=== PATIENT | female | born 1975 | race Caucasian/White ===

== ENCOUNTER → 2021-07-22 | Outpatient (CLI) | payer BC ==
[2021-07-22 11:29] LABS: HEMOGLOBIN 12.5 gm/dl (12.3-15.3); RED BLOOD COUNT 4.48 M/UL (4.00-5.10); WHITE BLOOD COUNT 11.5 K/UL (4.5-11.0)
[2021-07-22 12:02] LABS: BUN/CREATININE RATIO 14 (0-10)
== END ==
LOC: LAB 10:55
PROVIDERS: Internal Medicine
DX: Z00.00 Encounter for general adult medical examination without abnormal findings (principal)
CPT/HCPCS: 36415; 80053; 80061; 81001; 83036; 84439; 84443; 85025